=== PATIENT | female | born 1960 | race Native Hawaiian/Other Pacific Islander ===

== ENCOUNTER 2018-06-17 07:21 | Day surgery (SDC) | payer OTHER ==
[2018-06-10 12:45] VITALS: BMI 25.0
[2018-06-17 08:10] LABS: BASO # 0.01 K/mm3 (0.0-2.0); BASO % 0.2 % (0.0-3.0); EOS # 0.1 (0.0-0.7); GRAN # 2.77 (1.4-6.5); GRAN % 59.4 % (50.0-68.0); HEMOGLOBIN 13.4 g/dL (12.0-16.0); LYMPH # 1.4 (1.2-3.4); LYMPH % 30.3 % (22.0-35.0); MEAN CELL VOLUME 91.6 fl (80.0-105.0); MEAN CORPUSCULAR HEMOGLOBIN 29.8 pg (25.0-35.0); MEAN CORPUSCULAR HGB CONC 32.5 g/dl (31.0-37.0); MEAN PLATELET VOLUME 9.5 fl (7.0-11.0); MONO # 0.3 (0.1-0.6); MONO % 7.1 % (1.0-6.0); RBC 4.5 10^6/uL (3.5-6.1); RED CELL DISTRIBUTION WIDTH 13.2 % (11.5-14.5); WHITE BLOOD COUNT 4.7 10^3/uL (4.5-11.0)
[2018-06-17 08:19] LABS: INR 0.88; PARTIAL THROMBOPLASTIN TIME 34.2 Seconds (25.1-36.5); PROTHROMBIN TIME 10.1 SECONDS (9.4-12.5)
[2018-06-17 08:25] LABS: BLOOD UREA NITROGEN 13 mg/dL (7-21); CALCIUM 9.2 mg/dL (8.4-10.5); GFR NON-AFRICAN AMERICAN > 60
--- NOTE | 2018-06-17 09:26 | CARD ---
APPROVED REPORT Date of service: 06/17/2018 EKG Measurement Heart [id number] <Conclusion> Sinus bradycardia Otherwise normal ECG
[2018-06-17] MEDS ORDERED: Lidocaine 2% Inj (20ml) ONE (09:54)
[2018-06-17] MEDS ORDERED: Phenylephrine 10 mg/ml Inj ONE (09:59)
[2018-06-17] MEDS ORDERED: Nitroglycerin 50mg in D5W 50 MG/250 ML BOTTLE IV ONE (09:59)
[2018-06-17] MEDS ORDERED: Iodixanol 320 MG/ML 200 ML BOTTLE IV ONE (10:01)
[2018-06-17] MEDS ORDERED: Iodixanol 320 MG/ML 100 ML BOTTLE IV ONE (10:01)
[2018-06-17] MEDS ORDERED: Iohexol 350mgl/ml 50 ML ONE (10:01)
[2018-06-17] MEDS ORDERED: Midazolam 2 MG/2 ML VIAL ONE ×2 (10:27→10:36)
[2018-06-17] MEDS ORDERED: Sodium Chloride 0.9% 1,000 ML IV SCH (11:15)
[2018-06-17 11:39] VITALS: RESP 20; TEMP 97; O2SAT 98
--- NOTE | 2018-06-17 13:11 | CARDCATH ---
PROCEDURE DATE: 06/17/2018 HISTORY: The patient is a 57-year-old woman, who suffers from hypertension and hypercholesterolemia, who presents with an abnormal stress test. Because of this, cardiac catheterization was recommended. PROCEDURES: Left heart catheterization with coronary arteriography and left ventriculogram. The right femoral artery was cannulated with a 6-Malagasy sheath. There were no complications. I performed moderate sedation which included the presence of an independent trained observer that assisted in monitoring the patient's level of consciousness and physiologic status. After administration of Versed and fentanyl, my intra-service time was 15 minutes. The findings on catheterization revealed a normal LV function with an EF of 60% to 65%. Her coronary anatomy revealed mild intimal irregularities and a right dominant RCA. The left main artery was unremarkable. The LAD and diagonal vessels were free of significant disease. The circumflex artery and obtuse marginal branches were free of significant disease. Angio-Seal was used to close the femoral artery site. The patient tolerated the procedure well. In summary, the procedure revealed intimal irregularities in her coronary tree with no critical lesions. LV function is normal. Given these findings, the patient can continue on her baby aspirin because of her intimal irregularities in the coronary tree. Continued cardiac risk reduction program would be appropriate. Walter Narvaez MD
[2018-06-17 16:28] VITALS: BP 126/74; PULSE 52
== END 2018-06-17 17:15 | disposition home or self-care (01) ==
LOC: CATH 07:21
PROVIDERS: ATTEND Internal Medicine Cardiovascular Disease
DX: R94.39 Abnormal result of other cardiovascular function study (principal); I10 Essential (primary) hypertension; E78.00 Pure hypercholesterolemia, unspecified
CPT/HCPCS: 36415; 80048; 85025; 85610; 85730; 86850; 86900; 93005; 93458; 99152; 99153; C1760; C1769; C2629; J1644; J2250; J3010; J7030; J7040; Q9966; Q9967